=== PATIENT | male | born 1975 | race Caucasian/White ===

== ENCOUNTER 2019-09-03 02:26 | Emergency (ER) | payer SELFPAY | END 2019-09-03 02:40 | disposition home or self-care (01) | PROVIDERS: Emergency Provider Emergency Medicine; Visit Provider Emergency Medicine | DX: M62.838 Other muscle spasm (principal); M25.512 Pain in left shoulder | CPT/HCPCS: 99283 ==

== ENCOUNTER 2019-09-14 10:44 | Emergency (ER) | payer SELFPAY ==
[2019-09-14 10:55] VITALS: BP 132/82; PULSE 74; RESP 16; TEMP 36.6; O2SAT 98; BMI 24.3
--- NOTE | 2019-09-14 11:09 | ED_ITS ---
Entered by Herminio Pedraza LPN, acting as scribe for HPI - Eye Problem General: Chief complaint: Eye Problems Stated complaint: right eye pain Time Seen by Provider: 09/14/19 11:10 Source: patient Mode of arrival: ambulatory Limitations: no limitations History of Present Illness: HPI Narrative: 43 yo male presents with c/o right eye pain. He reports he pulled a piece of charcoal out of it this am. It became irritated yesterday while at work. Also c/o right wrist pain for about one month. He admits he did get it pinned b/t wood and a conveyor belt. Pain increases with certain movements. No swelling, no bruising. He has still be able to use this wrist. 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) Severity: moderate Treatments Prior to Arrival: other (removed FB) Review of Systems General: Reports: 10 or more systems reviewed and unremarkable except in HPI and below Eyes: Reports: eye discomfort (right) and eye redness (right) Musc: Reports: extremity pain (right wrist, without swelling or bruising, for one month) PFSH ED PFSH: Statuses (acute, chronic, etc) shown below reflect problem list status as previously entered and may not be historically accurate Social History Smoking and tobacco status: current every day smoker Physical Exam Const: COMMON NORMALS: no apparent distress, oriented x3, no limitations, healthy appearing, alert and well nourished GENERAL APPEARANCE: cooperative HENMT: COMMON NORMALS: normocephalic, head/scalp atraumatic and external ears normal HEAD & SCALP: normocephalic and atraumatic EXTERNAL EAR: Yes external ears normal Eye: COMMON NORMALS: PERRL, EOMs intact bilaterally and conjunctivae normal EYELID: eyelid abnormal right upper eyelid erythema and swelling CONJUNCTIVA: Yes conjunctivae normal PUPIL: Yes PERRL Resp: COMMON NORMALS: normal respiratory effort Extremity: RIGHT UPPER EXTREMITY: Yes wrist Right wrist: Yes inspection (no bruising or swelling), Yes palpation (nontender), Yes ROM (normal) and Yes neurovascular exam (intact) Neuro: COMMON NORMALS: oriented x3 SENSORIUM/ORIENTATION: Yes alert Skin: COMMON NORMALS: no rashes or lesions noted GENERAL SKIN EXAM: no rashes or lesions noted Course ED course: xray negative, eye irrigated, pt tolerated well, dc home to follow up with PCP. Vital Signs: Vital signs: Vital Signs Temperature 98 F 09/14/19 10:55 Pulse Rate 74 09/14/19 10:55 Respiratory Rate 16 09/14/19 10:55 Blood Pressure 132/82 09/14/19 10:55 Pulse Oximetry 98 09/14/19 10:55 Discharge Plan Discharge Patient Disposition: Home, Self-Care Clinical Impression: Corneal abrasion Qualifiers: Encounter type: initial encounter Laterality: right Qualified Code(s): S05.01XA - Injury of conjunctiva and corneal abrasion without foreign body, right eye, initial encounter Condition: Stable Prescriptions: New polymyxin B sulf-trimethoprim [Polytrim] 10,000 unit- 1 mg/mL drops 1 drop ophthalmic (eye) QID 7 Days RF: 0 Discharge Orders: Discharge Order (Routine); Ordered 09/14/19 Ordered By: Renu Quinteros Discharge Diet: Usual diet Discharge Activity: Resume usual activity Patient Instructions: Corneal Abrasion (ED) Coding Level of Care Code ED Gas Shovel Operator for Chg Fwd Exam Problem Focused The documentation recorded by the Milo matthew Dani Elizabeth, LPN, accurately reflects the service I personally performed and the decisions made by Neli lugo Amanda, DO
--- NOTE | 2019-09-14 11:16 | XRR_ITS ---
PROCEDURE INFORMATION: Exam: XR Right Wrist Exam date and time: 09/14/2019 11:16 AM Age: 43 years old Clinical indication: Injury or trauma; Injury history: Smashed by log; Late effect from previous injury; RT wrist pain, says he smashed it several months ago; Injury date: X2 months; Injury details: Smashed with a piece of log TECHNIQUE: Imaging protocol: XR Right wrist. Views: 3 or more views. COMPARISON: No relevant prior studies available. FINDINGS: Bones/joints: Normal. Soft tissues: Normal. XR/XR wrist RT min 3V* [id number] IMPRESSION: No acute findings.
--- NOTE | 2019-09-14 11:16 | W.ED.EYEPROB ---
HPI - Eye Problem General: Chief complaint: Eye Problems Stated complaint: right eye pain Time Seen by Provider: 09/14/19 11:10 PFSH ED PFSH: Statuses (acute, chronic, etc) shown below reflect problem list status as previously entered and may not be historically accurate Social History Smoking and tobacco status: current every day smoker Course Vital Signs: Vital signs: Vital Signs Temperature 98 F 09/14/19 10:55 Pulse Rate 74 09/14/19 10:55 Respiratory Rate 16 09/14/19 10:55 Blood Pressure 132/82 09/14/19 10:55 Pulse Oximetry 98 09/14/19 10:55 Discharge Plan Discharge Condition: Stable Coding Level of Care Code ED Reinforced Concrete Inspector for Guadalupe Garcia
--- NOTE | 2019-09-14 11:52 | ED_ITS ---
HPI - Eye Problem General: Chief complaint: Eye Problems Stated complaint: right eye pain Time Seen by Provider: 09/14/19 11:10 Source: patient Mode of arrival: ambulatory Limitations: no limitations History of Present Illness: MD chief complaint: eye pain (right) Location: right eye Eye Symptoms: burning Place: work Severity: moderate Treatments Prior to Arrival: other (removed FB) Review of Systems General: Reports: 10 or more systems reviewed and unremarkable except in HPI and below Eyes: Reports: eye discomfort Musc: Reports: joint pain PFSH ED PFSH: Statuses (acute, chronic, etc) shown below reflect problem list status as previously entered and may not be historically accurate Social History Smoking and tobacco status: current every day smoker Physical Exam Narrative: EXAM NARRATIVE: c o eye pain after pulling a piece of charcoal (from work) from medial [place] of right eye yeaterday, irritation persisting today Course Vital Signs: Vital signs: Vital Signs Temperature 98 F 09/14/19 10:55 Pulse Rate 74 09/14/19 10:55 Respiratory Rate 16 09/14/19 10:55 Blood Pressure 132/82 09/14/19 10:55 Pulse Oximetry 98 09/14/19 10:55 Discharge Plan Discharge Patient Disposition: Home, Self-Care Clinical Impression: Corneal abrasion Qualifiers: Encounter type: initial encounter Laterality: right Qualified Code(s): S05.01XA - Injury of conjunctiva and corneal abrasion without foreign body, right eye, initial encounter Condition: Stable Prescriptions: New polymyxin B sulf-trimethoprim [Polytrim] 10,000 unit- 1 mg/mL drops 1 drop ophthalmic (eye) QID 7 Days RF: 0 Discharge Orders: Discharge Order (Routine); Ordered 09/14/19 Ordered By: Renu Quinteros Discharge Diet: Usual diet Discharge Activity: Resume usual activity Patient Instructions: Corneal Abrasion (ED) Coding Level of Care Code ED Record Librarian for Guadalupe Garcia
[2019-09-14 12:29] VITALS: BP 115/71; PULSE 85; RESP 17; TEMP 36.6; O2SAT 98
[2019-09-14 12:39] VITALS: BP 122/87; PULSE 68; RESP 16; O2SAT 99
== END 2019-09-14 12:40 | disposition home or self-care (01) ==
LOC: ER 12:18
PROVIDERS: Emergency Provider Emergency Medicine
DX: S05.01XA Injury of conjunctiva and corneal abrasion without foreign body, right eye, initial encounter (principal); X58.XXXA Exposure to other specified factors, initial encounter; F17.210 Nicotine dependence, cigarettes, uncomplicated
CPT/HCPCS: 73110; 99281

== ENCOUNTER 2019-11-17 15:25 | Emergency (ER) | payer SELFPAY ==
[2019-11-17 15:30] VITALS: BP 153/90; PULSE 107; RESP 16; O2SAT 99; BMI 24.3
--- NOTE | 2019-11-17 15:40 | W.ED.EXTPRO ---
Documented by User: MARC Etienne 11/17/19 17:07 HPI - Extremity Problem General: Chief complaint: Extremity Problem,Nontraumatic Stated complaint: wrist pain Time Seen by Provider: 11/17/19 17:21 History of Present Illness: HPI Narrative: Patient is a 43-year-old male who comes into the ED with right wrist pain. Patient states that he has had right wrist pain due to an injury about 4 months ago. He said that last night at work he reinjured it by getting his right wrist caught in a machine. He now has more acute pain in his right wrist. He has not taken anything for pain yet. Pain is located on the radial side of wrist. Associated symptoms: Deny chest pain, fever(s) or rash Review of Systems Const: Denies: fever, chills or fatigue Eyes: Denies: change in vision or eye discomfort ENMT: Denies: throat pain, painful swallowing, nasal discharge or nasal congestion Card: Denies: chest pain, palpitations, edema, swelling of feet/ankles, shortness of breath on exertion or shortness of breath when lying down Resp: Denies: shortness of breath, productive cough or non-productive cough GI: Denies: abdominal pain, nausea, vomiting, diarrhea, constipation or blood in stool : Denies: flank pain, difficulty urinating, painful urination or blood in urine Musc: Reports: extremity pain (right wrist) and extremity swelling (right wrist); Denies: neck pain or back pain Skin/Breast: Denies: rash or new lesion Neuro: Denies: headache, numbness in extremities or weakness in extremities PFS ED PFSH: Social History Smoking and tobacco status: current every day smoker Physical Exam Const: COMMON NORMALS: oriented x3 HENMT: COMMON NORMALS: normocephalic HEAD & SCALP: normocephalic MOUTH: oral and palatal mucosa normal THROAT: posterior oropharynx normal and uvula midline Neck/C-Spine: COMMON NORMALS: supple GENERAL: Yes normal visual inspection Resp: COMMON NORMALS: normal respiratory effort, no retractions, no use of accessory muscles and clear to auscultation bilaterally AUSCULTATION: clear to auscultation bilaterally Cardio: COMMON NORMALS: regular rate, regular rhythm, S1 normal heart sound, S2 normal heart sound, no gallops, no clicks, no murmurs and peripheral pulses 2+ throughout RATE: regular rate RHYTHM: regular rhythm HEART SOUNDS: S1 normal and S2 normal PERIPHERAL PULSES: pulses 2+ throughout GI: COMMON NORMALS: normal to inspection, nondistended, normoactive bowel sounds, soft to palpation, non-tender and no masses PALPATION: Yes soft : COMMON NORMALS: Yes no CVA tenderness BLADDER/KIDNEY EXAM: Yes no CVA tenderness Back/Pelvis: COMMON NORMALS: no CVA tenderness Extremity: RIGHT UPPER EXTREMITY: Yes wrist Right wrist: Yes inspection (Mild swelling near radial side of wrist.), Yes palpation (tender on radial side), Yes ROM (normal and no pain with movement) and Yes neurovascular exam (intact) Neuro: COMMON NORMALS: oriented x3 and moves all extremities Skin: COMMON NORMALS: no rashes or lesions noted GENERAL SKIN EXAM: no rashes or lesions noted and dry skin Course Vital Signs: Vital signs: Vital Signs Pulse Rate 107 H 11/17/19 15:30 Respiratory Rate 16 11/17/19 15:30 Blood Pressure 153/90 11/17/19 15:30 Pulse Oximetry 99 11/17/19 15:30 Discharge Plan Discharge Patient Disposition: Home, Self-Care Clinical Impression: Right wrist sprain Qualifiers: Encounter type: initial encounter Qualified Code(s): S63.501A - Unspecified sprain of right wrist, initial encounter Condition: Stable Prescriptions: No Action No Known Home Medications RF: 0 Discharge Diet: Usual diet Discharge Activity: Increase activity as tolerated Patient Instructions: Wrist Injury (ED) Activity Restrictions/Additional Instructions: Take NSAIDs for relief of pain wear wrist brace as directed follow-up with your primary care provider and CV get appointment with Ortho to reevaluate why you have had wrist pain for 4 months. Ice wrist down Coding Level of Care Code ED Care Transition Mgr for Chg Fwd Exam Comprehensive Documented by User: FAMILIA Zayas 11/17/19 17:34 HPI - Extremity Problem General: Chief complaint: Extremity Problem,Nontraumatic Stated complaint: wrist pain Time Seen by Provider: 11/17/19 17:21 PFSH ED PFSH: Social History Smoking and tobacco status: current every day smoker Course Vital Signs: Vital signs: Vital Signs Pulse Rate 107 H 11/17/19 15:30 Respiratory Rate 16 11/17/19 15:30 Blood Pressure 153/90 11/17/19 15:30 Pulse Oximetry 99 11/17/19 15:30 MDM - Extremity (Nontraumatic) MDM Narrative: Medical decision making narrative: Patient complains about wrist pain I received report from MARC Etienne about this patient I went and reassessed patient patient has no swelling to the wrist has full range of motion does have tenderness to the radial side of Woo and explained x-rays negative Discharge Plan Discharge Patient Disposition: Home, Self-Care Clinical Impression: Right wrist sprain Qualifiers: Encounter type: initial encounter Qualified Code(s): S63.501A - Unspecified sprain of right wrist, initial encounter Condition: Stable Prescriptions: No Action No Known Home Medications RF: 0 Discharge Diet: Usual diet Discharge Activity: Increase activity as tolerated Patient Instructions: Wrist Injury (ED) Activity Restrictions/Additional Instructions: Take NSAIDs for relief of pain wear wrist brace as directed follow-up with your primary care provider and CV get appointment with Ortho to reevaluate why you have had wrist pain for 4 months. Ice wrist down Coding Level of Care Code ED Care Transition Mgr for Guadalupe Fwd Exam Comprehensive
--- NOTE | 2019-11-17 16:27 | XRR_ITS ---
PROCEDURE INFORMATION: Exam: XR Right Wrist Exam date and time: 11/17/2019 4:49 PM Age: 43 years old Clinical indication: Pain; Wrist; Right; Additional info: Injury and pain TECHNIQUE: Imaging protocol: XR Right wrist. Views: 3 or more views. COMPARISON: No relevant prior studies available. FINDINGS: Bones/joints: Normal. Soft tissues: Normal. XR/XR wrist RT min 3V* [id number] IMPRESSION: No acute findings.
[2019-11-17] MEDS: ketorolac 30 mg/mL INJ IM (16:50)
[2019-11-17 17:50] VITALS: BP 125/85; PULSE 75; RESP 16; O2SAT 97
== END 2019-11-17 17:51 | disposition home or self-care (01) ==
PROVIDERS: Emergency Provider Nurse Practitioner Family
DX: S63.501A Unspecified sprain of right wrist, initial encounter (principal); F17.200 Nicotine dependence, unspecified, uncomplicated; W31.9XXA Contact with unspecified machinery, initial encounter
CPT/HCPCS: 12345; 73110; 96372; 99281; 99283; J1885

== ENCOUNTER 2019-12-05 03:26 | Emergency (ER) | payer SELFPAY ==
[2019-12-05 03:34] VITALS: BP 137/86; PULSE 83; RESP 18; TEMP 36.6; O2SAT 98; BMI 24.3
[2019-12-05 03:42] VITALS: O2SAT 98
--- NOTE | 2019-12-05 03:46 | ED_ITS ---
HPI - Dental/Oral General: Chief complaint: Dental/Oral Stated complaint: DENTAL PAIN Time Seen by Provider: 12/05/19 03:46 History of Present Illness: HPI Narrative: Mr. Baeza is a 43-year-old male comes in complaining of right lower dental pain for the past 1 to 2 days. He denies any facial swelling, fever, vomiting or other complaint. He has no difficulty swallowing or difficulty speaking. Review of Systems General: Reports: 10 or more systems reviewed and unremarkable except in HPI and below PFSH ED PFSH: Medical History (Updated 12/05/19 @ 03:49 by Sona Douglass) No pertinent past medical history Social History Smoking and tobacco status: current every day smoker Physical Exam Const: COMMON NORMALS: no apparent distress, oriented x3, no limitations, healthy appearing and well nourished EXAM LIMITATIONS: no altered mental status GENERAL APPEARANCE: cooperative, well kempt and well developed ORIENTATION/CONSCIOUSNESS: Yes awake HENMT: COMMON NORMALS: normocephalic, head/scalp atraumatic, hearing grossly normal bilaterally, external ears normal, EAC's normal, external nose normal and moist oral mucous membranes HEAD & SCALP: normal to inspection, normocephalic and atraumatic FACE & SINUS: normal facial exam and face symmetric NOSE: external nose normal and nares normal EXTERNAL EAR: Yes external ears normal EXTERNAL AUDITORY CANAL: EAC's normal MOUTH: oral and palatal mucosa normal and tongue normal TEETH & GINGIVA: Yes other (Right inferior most posterior molar with obvious caries. No surrounding swelling or inflammation or abscess.) Eye: COMMON NORMALS: PERRL, EOMs intact bilaterally, conjunctivae normal and no scleral icterus GENERAL EYE: normal appearance of both eyes and normal light reflex CONJUNCTIVA: Yes conjunctivae normal SCLERA: sclerae normal CORNEA: Yes corneas normal PUPIL: Yes PERRL DIRECT OPHTHALMOSCOPY: Yes normal light reflex Neck/C-Spine: COMMON NORMALS: full ROM, no lymphadenopathy, supple, no meningeal signs and no JVD GENERAL: Yes normal visual inspection and Yes trachea midline CERVICAL SPINE: Yes cervical ROM normal Chest: COMMONS NORMALS: inspection of chest normal and palpation of chest normal Resp: COMMON NORMALS: normal respiratory effort, no retractions, no use of accessory muscles and clear to auscultation bilaterally EFFORT & INSPECTION: Yes able to speak in complete sentences AUSCULTATION: clear to auscultation bilaterally Cardio: COMMON NORMALS: no JVD, regular rate, regular rhythm, S1 normal heart sound, S2 normal heart sound, no gallops, no clicks, no murmurs and no rub JUGULAR VENOUS DISTENTION: no JVD RATE: regular rate RHYTHM: regular rhythm HEART SOUNDS: S1 normal and S2 normal GI: COMMON NORMALS: soft to palpation, non-tender, no hepatosplenomegaly and no masses INSPECTION: Yes normal to inspection PALPATION: Yes soft and Yes no hepatosplenomegaly : COMMON NORMALS: Yes no CVA tenderness BLADDER/KIDNEY EXAM: Yes no CVA tenderness Back/Pelvis: COMMON NORMALS: no CVA tenderness, thoracic and lumbar spine normal to inspection, no thoracic nor lumbar tenderness and thoraco-lumbar ROM normal Extremity: COMMON NORMALS: normal to inspection, full ROM, normal capillary refill, no joint enlargement, no clubbing, cyanosis or edema and no calf tenderness Neuro: COMMON NORMALS: oriented x3, CN's II-XII intact bilaterally, moves all extremities, no focal motor deficits and no sensory deficits noted MENINGEAL SIGNS: Yes no meningeal signs Psych: COMMON NORMALS: mental status grossly normal, thought process normal, cooperative, affect normal, speech normal and activity/motor behavior normal APPEARANCE: Yes well kempt SPEECH: Yes normal speech THOUGHT PROCESS: normal thought process Skin: COMMON NORMALS: no rashes or lesions noted, skin turgor normal, no jaundice, no petechiae and no mottling GENERAL SKIN EXAM: no rashes or lesions noted and turgor normal Course Vital Signs: Vital signs: Vital Signs Temperature 97.8 F 12/05/19 03:34 Pulse Rate 83 12/05/19 03:34 Respiratory Rate 18 12/05/19 03:34 Blood Pressure 137/86 12/05/19 03:34 Pulse Oximetry 98 12/05/19 03:42 MDM - Dental/Oral MDM Narrative: Medical decision making narrative: Patient has no sign of [place]'s angina, dental abscess or severe swelling. There is no sign of airway involvement. I will place the patient on Cleocin as appropriate and further care will be determined by the dentist of his choice. He understands he needs to return here if his symptoms change or worsen. Discharge Plan Discharge Patient Disposition: Home, Self-Care Clinical Impression: Toothache Condition: Stable Prescriptions: New Cleocin HCl 150 mg capsule 300 mg PO Q6H 10 Days Qty: 80 RF: 0 Discharge Orders: Discharge Order (Routine); Ordered 12/05/19 Ordered By: Sona Douglass Discharge Diet: Advance as tolerated Discharge Activity: Increase activity as tolerated Patient Instructions: Toothache (ED) Activity Restrictions/Additional Instructions: Please return to the ER immediately for any of the signs or symptoms listed on your discharge instruction sheets, worsening/changing of your symptoms, you are not getting better as quickly as expected, or for ANY other cause or concerns. Be certain to follow-up with your dentist of choice as soon as possible. Coding Level of Care Code ED Metal Furniture Assembly Supervisor for Guadalupe Garcia
[2019-12-05] MEDS: clindamycin 150 mg Capsule 300 MG PO (03:51)
== END 2019-12-05 03:50 | disposition home or self-care (01) ==
PROVIDERS: Emergency Provider Emergency Medicine
DX: K08.89 Other specified disorders of teeth and supporting structures (principal); F17.200 Nicotine dependence, unspecified, uncomplicated
CPT/HCPCS: 12345; 99281; 99282

== ENCOUNTER 2019-12-16 19:54 | Emergency (ER) | payer SELFPAY ==
[2019-12-16 20:06] VITALS: BP 148/98; PULSE 102; RESP 18; TEMP 36.7; O2SAT 97; BMI 22.9
--- NOTE | 2019-12-16 20:22 | XR_ITS ---
WS: [id number] SOFT TISSUE NECK 2 VIEW(S) TECHNIQUE: AP and lateral views of the neck in soft tissue technique are performed. HISTORY: food bolus stuck COMPARISON: None available. No definite soft tissue in the cervical esophagus. There is an area of narrowing in the distal cervic al esophagus on the AP film. On the lateral projection no persistent abnormality. No distention of th e hypopharynx. Epiglottis is normal. XR/XR soft tissue neck [id number] IMPRESSION: No evidence for food bolus in the cervical esophagus.
--- NOTE | 2019-12-16 20:23 | XR_ITS ---
WS: [id number] CHEST 2 VIEWS HISTORY: difficulty breathing COMPARISON: 03/19/2019 Lungs: Clear with no abnormality. No pleural effusion or pneumothorax. Cardiac size: Normal. Mediastinum/Aorta: Normal mediastinum. Bones: Normal. XR/XR chest 2V* [id number] IMPRESSION: Normal chest.
[2019-12-16] MEDS: diphenhydrAMINE 50 mg/mL SDV 1mL IM (20:41)
[2019-12-16 20:45] VITALS: BP 148/98; PULSE 92; RESP 14; O2SAT 98
--- NOTE | 2019-12-16 21:14 | W.ED.ALLEREA ---
HPI - Allergic Reaction General: Chief complaint: Airway/Esophagus Foreign Body Stated complaint: possible foreign body in throat Time Seen by Provider: 12/16/19 20:11 Source: patient Mode of arrival: ambulatory Limitations: no limitations History of Present Illness: HPI narrative: This 43-year-old gentleman presents emergency department with concerns that he thinks he may have got some food stuck in his throat. He was eating some beef jerky and chips and says that he feels something is stuck in his throat. He has not tried to drink anything since it happened. He does say he is having some trouble breathing and throughout my interview with him he kept clearing his throat and coughing. He says he was wheezing earlier. No nausea or vomiting. Onset (ago): hour(s) (1) Exposure: food Associated symptoms: Reports difficulty breathing and difficulty swallowing; Deny hoarseness Severity: moderate Treatment prior to arrival: none Previous Allergic Reaction History: none Review of Systems General: Reports: 10 or more systems reviewed and unremarkable except in HPI and below Const: Denies: fever, chills or body aches Eyes: Denies: change in vision or blurry vision ENMT: Denies: throat pain, enlarged tonsils, painful swallowing, hoarseness, mouth pain or swelling of lips/tongue Card: Reports: chest pain; Denies: palpitations, irregular heart rhythm, edema or swelling of feet/ankles Resp: Reports: shortness of breath, non-productive cough and wheezing GI: Reports: difficulty swallowing : Denies: flank pain, painful urination, urinary frequency, urinary urgency or urinary hesitancy Musc: Denies: neck pain, back pain or extremity swelling Skin/Breast: Denies: rash, itching or redness Neuro: Denies: headache, numbness in extremities or weakness in extremities Endo: Denies: excessive urination, excessive thirst or tired all the time [facility] ED PFSH: Medical History (Updated 12/16/19 @ 21:54 by [place] Hurtado [place] [facility] [place] pertinent past medical history Social History Smoking and tobacco status: current every day smoker Physical Exam Narrative: EXAM NARRATIVE: Appears to be in mild distress and is clearly uncomfortable. Const: COMMON NORMALS: average body habitus, oriented x3, no limitations, healthy appearing, alert and well nourished HENMT: COMMON NORMALS: normocephalic, head/scalp atraumatic and moist oral mucous membranes HEAD & SCALP: normocephalic and atraumatic Eye: COMMON NORMALS: PERRL, EOMs intact bilaterally, conjunctivae normal and no scleral icterus CONJUNCTIVA: Yes conjunctivae normal PUPIL: Yes PERRL Neck/C-Spine: COMMON NORMALS: full ROM, supple, no meningeal signs, no JVD and no carotid bruits Chest: COMMONS NORMALS: inspection of chest normal and palpation of chest normal Resp: COMMON NORMALS: normal respiratory effort, no retractions, no use of accessory muscles, clear to auscultation bilaterally and percussion normal AUSCULTATION: clear to auscultation bilaterally PERCUSSION: percussion normal Cardio: COMMON NORMALS: no JVD, regular rate, regular rhythm, S1 normal heart sound, S2 normal heart sound, no gallops, no clicks, no murmurs, no rub and peripheral pulses 2+ throughout RATE: regular rate RHYTHM: regular rhythm HEART SOUNDS: S1 normal and S2 normal PERIPHERAL PULSES: pulses 2+ throughout GI: COMMON NORMALS: normal to inspection, nondistended, normoactive bowel sounds, soft to palpation, non-tender, no hepatosplenomegaly, no masses and no bruits PALPATION: Yes soft and Yes no hepatosplenomegaly : COMMON NORMALS: Yes no CVA tenderness BLADDER/KIDNEY EXAM: Yes no CVA tenderness Back/Pelvis: COMMON NORMALS: no CVA tenderness Extremity: COMMON NORMALS: normal to inspection, full ROM, normal capillary refill, no calf tenderness and no pedal edema Neuro: COMMON NORMALS: oriented x3 SENSORIUM/ORIENTATION: Yes alert MENINGEAL SIGNS: Yes no meningeal signs Skin: COMMON NORMALS: no rashes or lesions noted, no wounds, skin turgor normal, no jaundice, no petechiae and no mottling GENERAL SKIN EXAM: no rashes or lesions noted and turgor normal Course Reevaluation(s): Reevaluation #1: Patient feels better. He is no longer clearing his throat and coughing. He was able to take a drink of water and went down without difficulty. I believe this is more of an allergic reaction than a food bolus stuck in his throat. He tried a new flavor of jalapeno beef jerky according to his girlfriend. I think he may had an allergic reaction to it. Time: 21:14 Reevaluation #2: Patient continues to improve. No trouble breathing, no clear throat, no sensation of something stuck in his throat. We will discharge him home now. Time: 21:50 Vital Signs: Vital signs: Vital Signs Temperature 98.0 F 12/16/19 20:06 Pulse Rate 70 12/16/19 21:50 Respiratory Rate 16 12/16/19 21:50 Blood Pressure 136/94 12/16/19 21:50 Pulse Oximetry 96 12/16/19 21:50 MDM - Allergic Reaction MDM Narrative: Medical decision making narrative: 43-year-old gentleman who presents to the emergency department with symptoms consistent with an anaphylactic reaction to a jalapeno beef jerky. Symptoms improved following Benadryl and prednisone. He was observed in the emergency department for about an hour after and remained asymptomatic. He is therefore discharged home with a prescription for oral prednisone. Discharge Plan Discharge Patient Disposition: Home, Self-Care Clinical Impression: Anaphylactic reaction due to food Condition: Stable Prescriptions: New prednisone 20 mg tablet 40 mg PO DAILY 3 Days Qty: 6 RF: 0 Discharge Orders: Discharge Order (Routine); Ordered 12/16/19 Ordered By: Gerald Hurtado Discharge Activity: Resume usual activity Patient Instructions: Anaphylaxis (ED) Activity Restrictions/Additional Instructions: Return for any new or worsening symptoms. Follow-up with your primary care provider within 3 days. Avoid the beef jerky to eat today as I believe it caused an anaphylactic reaction. 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
[2019-12-16 21:50] VITALS: BP 136/94; PULSE 70; RESP 16; O2SAT 96
== END 2019-12-16 22:05 | disposition home or self-care (01) ==
PROVIDERS: Emergency Provider Family Medicine
DX: T78.09XA Anaphylactic reaction due to other food products, initial encounter (principal); F17.210 Nicotine dependence, cigarettes, uncomplicated; R06.00 Dyspnea, unspecified
CPT/HCPCS: 12345; 70360; 71046; 96372; 99281; 99283; J1200; J1610; J2930

== ENCOUNTER 2020-01-07 15:01 | Emergency (ER) | payer SELFPAY ==
[2020-01-07 15:16] VITALS: BP 162/95; PULSE 90; RESP 18; TEMP 36.8; O2SAT 97; BMI 23.6
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
[2020-01-07 18:40] VITALS: BP 137/90; PULSE 75; RESP 16; O2SAT 98
== END 2020-01-07 18:40 | disposition home or self-care (01) ==
PROVIDERS: Emergency Provider Physician Assistant
DX: S16.1XXA Strain of muscle, fascia and tendon at neck level, initial encounter (principal); M79.601 Pain in right arm; V89.2XXA Person injured in unspecified motor-vehicle accident, traffic, initial encounter; F17.210 Nicotine dependence, cigarettes, uncomplicated
CPT/HCPCS: 12345; 71046; 72040; 73000; 73030; 73070; 73100; 99281; 99283

== ENCOUNTER 2020-05-06 06:24 | Emergency (ER) | payer SELFPAY ==
[2020-05-06 06:28] VITALS: BP 139/88; PULSE 89; RESP 16; TEMP 36.9; O2SAT 98; BMI 23.6
[2020-05-06 06:34] VITALS: BP 144/94; PULSE 83; RESP 18; O2SAT 98
--- NOTE | 2020-05-06 06:40 | ED_ITS ---
HPI - Extremity Problem General: Chief complaint: Extremity Injury, Lower Stated complaint: right leg pain Time Seen by Provider: 05/06/20 06:40 History of Present Illness: HPI Narrative: 44-year-old male presents to the emergency room with complaint of right leg pain. He cannot recall any specific injury. Patient has pain radiating down the leg involves the entire leg unable to examine adequately abuse patient is unable to relax. He has had problems with back with radicular pain in the past he cannot recall any precipitating episodes that seem to trigger it this time. Denies any difficulty with bowel or bladder control. MD Complaint: extremity pain Onset (ago): day(s) Pain Consistency: intermittent Location: right Quality: burning Radiation: distal Relieving factors: immobilization and rest Exacerbating factors: range of motion, weight bearing and walking Associated symptoms: Reports arthralgias and myalgias; Deny chest pain, fever(s), rash, short of breath or other Review of Systems Const: Denies: fever(s) ENMT: Denies: throat pain, ear or mastoid pain, nasal discharge or nasal congestion Card: Denies: chest pain Resp: Denies: dyspnea, productive cough or non-productive cough GI: Denies: abdominal pain, nausea, vomiting, hematemesis, coffee ground emesis, diarrhea, constipation, bloating, hematochezia or melena : Denies: flank pain, dysuria, urinary frequency or urinary urgency Skin/Breast: Denies: rash PFS ED PFSH: Medical History No pertinent past medical history Social History Smoking and tobacco status: current every day smoker Physical Exam Const: COMMON NORMALS: no acute distress GENERAL APPEARANCE: cooperative and comfortable ORIENTATION/CONSCIOUSNESS: Yes awake, Yes oriented to person, Yes oriented to place and Yes oriented to time HENMT: COMMON NORMALS: normocephalic, atraumatic and hearing grossly normal bilaterally HEAD & SCALP: normocephalic and atraumatic Eye: COMMON NORMALS: Equal, round and reactive pupils present, EOMs intact bilaterally, conjunctivae normal and no scleral icterus CONJUNCTIVA: Yes conjunctivae normal PUPIL: Yes Equal, round and reactive pupils present Neck/C-Spine: COMMON NORMALS: no JVD Resp: COMMON NORMALS: normal respiratory effort, No retractions, No use of ac cessory muscles and clear to auscultation bilaterally AUSCULTATION: clear to auscultation bilaterally Cardio: COMMON NORMALS: no JVD, regular rate, regular rhythm and No murmurs present (Cardio) RATE: regular rate RHYTHM: regular rhythm GI: COMMON NORMALS: Soft to palpation and No hepatosplenomegaly present AUSCULTATION: Yes normoactive bowel sounds PALPATION: Yes Soft to palpation, No Tenderness to palpation present (GI), No Guarding due to palpation present (GI) and Yes No hepatosplenomegaly present Extremity: COMMON NORMALS: normal to inspection, capillary refill normal, no clubbing, cyanosis or edema, no calf tenderness and no pedal edema NARRATIVE EXTREMITY EXAM: Unable to assess patient range of motion muscle strength sore deep tendon reflexes due to pain. Patient unable to relax to allow exam Neuro: SENSORIUM/ORIENTATION: Yes oriented to person, Yes oriented to place and Yes oriented to time Skin: COMMON NORMALS: no rashes or lesions noted GENERAL SKIN EXAM: no rashes or lesions noted Course Vital Signs: Vital signs: Vital Signs Temperature 98.4 F 05/06/20 06:28 Pulse Rate 81 05/06/20 08:06 Respiratory Rate 17 05/06/20 08:06 Blood Pressure 128/90 05/06/20 08:06 Pulse Oximetry 96 05/06/20 08:06 MDM - Extremity (Nontraumatic) MDM Narrative: Medical decision making narrative: Pain is improved some we will discharge her from the ER with meds as below return to his primary care doctor for possible advanced imaging and/or referral to pain clinic or neurosurgery. Discharge Plan Discharge Patient Disposition: Home Clinical Impression: Lumbar radiculopathy, right Condition: Stable Prescriptions: New hydrocodone-acetaminophen 5-325 mg tablet 1 tab PO Q6H PRN (Reason: pain) Qty: 15 RF: 0 Medrol (Maico) 4 mg tablets,dose pack See Rx Instructions .ROUTE .COMPLEX Qty: 21 RF: 0 tizanidine 4 mg capsule 4 mg PO Q6H PRN (Reason: muscle spasticity) Qty: 30 RF: 0 Discharge Orders: Discharge Order (Routine); Ordered 05/06/20 Ordered By: Tony L Horstman Discharge Diet: Usual diet Discharge Activity: Increase activity as tolerated Activity Restrictions/Additional Instructions: Follow-up with your primary care doctor within the week. 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
--- NOTE | 2020-05-06 06:49 | XR_ITS ---
WS: [id number] RIGHT ANKLE: 3 VIEW(S) TECHNIQUE: AP, oblique(s) and lateral. HISTORY: pain COMPARISON: None available. Normal anatomic alignment with no fracture or dislocation. No joint effusion or widening of the ankle mortise. No significant degenerative changes at the joint spaces. No soft tissue abnormality. XR/XR ankle RT min 3V* [id number] IMPRESSION: Normal RIGHT ankle.
--- NOTE | 2020-05-06 06:49 | XR_ITS ---
WS: [id number] RIGHT HIP HISTORY: pain COMPARISON: None available. Right hip: No acute fracture or dislocation. No significant narrowing of the hip joint. No soft tissu e abnormality. XR/XR hip RT 2-3V wo/w pel* [id number] IMPRESSION: 1. No hip fracture. 2. Negative RIGHT hip.
--- NOTE | 2020-05-06 06:49 | XR_ITS ---
WS: [id number] RIGHT KNEE: 3 VIEW(S) TECHNIQUE: AP, oblique(s) and lateral. HISTORY: pain COMPARISON: None available. Very subtle lucency along the RIGHT lateral tibial plateau and metaphysis. Without a history of traum a this is not likely an acute fracture. No joint space narrowing or osteophytes. There is a small suprapatellar effusion and soft tissue edema anteriorly. XR/XR knee RT 3V* [id number] IMPRESSION: 1. Mild joint effusion and soft tissue edema. 2. Subtle cortical lucencies in the lateral tibial plateau and metaphysis. Wit h no history of trauma probably not related to fracture. May be from an old inj ury or normal variation for this patient. If there is tenderness over the later al knee additional evaluation could include a knee CT without contrast.
--- NOTE | 2020-05-06 07:01 | CTR_ITS ---
PROCEDURE INFORMATION: Exam: CT Lumbar Spine Without Contrast Exam date and time: 05/06/2020 7:07 AM Age: 44 years old Clinical indication: Sciatica; Patient HX: Onset of right hip pain with posterior radiation. Unable to bear weight. ; Additional info: Radicular leg pain TECHNIQUE: Imaging protocol: Computed tomography images of the lumbar spine without contrast. Radiation optimization: All CT scans at this facility use at least one of these dose optimization techniques: automated exposure control; mA and/or kV adjustment per patient size (includes targeted exams where dose is matched to clinical indication); or iterative reconstruction. COMPARISON: No relevant prior studies available. RADIATION DOSE METRICS: Total DLP (mGy-cm): 1682.13 FINDINGS: Vertebrae: Marginal osteophytes and mild facet arthropathy. Anatomic alignment with diminished lumbar lordosis. Discs/Spinal canal/Neural foramina: Multilevel disc bulging, including calcified bulging discs at the L4-L5 and L5-S1 levels. Asymmetric right-sided foraminal stenosis at the L4-L5 level in association with right lateral disc herniation. Vasculature: Vascular calcification. Soft tissues: Unremarkable appearance of the paraspinous soft tissues. CT/CT lumbar spine wo con* [id number] IMPRESSION: 1. Multilevel disc bulging, including calcified bulging discs at the L4-L5 and L5-S1 levels. 2. Asymmetric right-sided foraminal stenosis at the L4-L5 level in association with right lateral disc herniation. 3. Additional findings as described above. Radiation Dose CTDIVOL = (mGy): DLP = 1682.13 (mGy-cm)
--- NOTE | 2020-05-06 07:06 | PC.NURSE ---
portable xray at bedside
[2020-05-06] MEDS: dexamethasone 10 mg/mL INJ IM (07:12)
[2020-05-06] MEDS: ketorolac 60 mg/2 mL INJ IM (07:12)
[2020-05-06] MEDS: tizanidine 4 mg Tablet PO (07:14)
--- NOTE | 2020-05-06 07:27 | PC.NURSE ---
pt to ct by stretcher with tech
[2020-05-06 08:06] VITALS: BP 128/90; PULSE 81; RESP 17; O2SAT 96
== END 2020-05-06 08:00 | disposition home or self-care (01) ==
PROVIDERS: Emergency Provider Family Medicine
DX: M54.16 Radiculopathy, lumbar region (principal); F17.210 Nicotine dependence, cigarettes, uncomplicated
CPT/HCPCS: 12345; 72131; 73502; 73562; 73610; 96372; 99281; 99283; J1100; J1885

== ENCOUNTER 2020-08-02 22:16 | Emergency (ER) | payer SELFPAY ==
[2020-08-02 22:40] VITALS: BP 142/92; PULSE 100; RESP 14; TEMP 36.7; O2SAT 98; BMI 23.6
[2020-08-02 22:56] VITALS: BP 151/92; PULSE 103; RESP 18; O2SAT 97
--- NOTE | 2020-08-02 22:57 | XRR_ITS ---
PROCEDURE INFORMATION: Exam: XR Chest, 1 View Exam date and time: 08/02/2020 11:24 PM Age: 44 years old Clinical indication: Cough; Patient HX: Covid symptoms TECHNIQUE: Imaging protocol: XR of the chest Views: 1 view. COMPARISON: CR XR chest 2V* [id number] 01/07/2020 3:50 PM FINDINGS: Lungs: Unremarkable. No consolidation. Pleural space: Unremarkable. No pleural effusion. No pneumothorax. Heart/Mediastinum: Unremarkable. No cardiomegaly. Bones/joints: Unremarkable. XR/XR chest 1V portable [id number] IMPRESSION: No acute findings.
--- NOTE | 2020-08-02 22:58 | ED_ITS ---
HPI - COVID General: Chief Complaint: COVID symptoms Stated Complaint: COVID SYMPTOMS Time Seen by Provider: 08/02/20 22:54 Source: patient Mode of arrival: ambulatory Limitations: no limitations Triage information: Has fever, cough or shortness of breath . Exposure to COVID + person last 14 days History of Present Illness: HPI Narrative: 44-year-old male states that over the last 2 days has had a cough along with fever and body aches. Patient states he has been around multiple people of tested positive over the last week for Covid. He states he has mild dyspnea is in no distress at this time and pulse ox is 97% on room air. Denies any worsening or improving factors. COVID 19 common symptoms: positive fever(s), chills, non-productive cough and body aches; negative headache(s), throat pain, nausea, vomiting or diarrhea COVID 19 other sytmptoms: negative chest pain COVID Results: Nasal/Oral Coronavirus 2019 PCR Pending 08/02/20 23:00 08/02/20 Review of Systems Const: Reports: fever(s), chills and body aches Eyes: Denies: blurry vision or eye discomfort ENMT: Denies: throat pain or dental pain Card: Denies: chest pain Resp: Reports: non-productive cough GI: Denies: abdominal pain, nausea, vomiting or diarrhea : Denies: dysuria Musc: Denies: neck pain or back pain Skin/Breast: Denies: rash Neuro: Denies: headache(s) Psych: Denies: depression Jaime/Lymph: Denies: easy bruising All/Imm: Denies: urticaria PFSH ED PFSH: Medical History (Updated 08/02/20 @ 23:26 by Chantel Odell MD) No pertinent past medical history Social History Smoking and tobacco status: current every day smoker Physical Exam Const: COMMON NORMALS: no acute distress, patient oriented x3 and healthy appearing HENMT: COMMON NORMALS: normocephalic and atraumatic HEAD & SCALP: normocephalic and atraumatic Eye: COMMON NORMALS: Equal, round and reactive pupils present and EOMs intact bilaterally PUPIL: Yes Equal, round and reactive pupils present Neck/C-Spine: COMMON NORMALS: full ROM and supple Chest: COMMONS NORMALS: normal inspection of the chest and normal palpation of entire chest wall Resp: COMMON NORMALS: normal respiratory effort, No retractions, No use of accessory muscles and clear to auscultation bilaterally AUSCULTATION: clear to auscultation bilaterally Cardio: COMMON NORMALS: regular rate, regular rhythm and No murmurs present (Cardio) RATE: regular rate RHYTHM: regular rhythm GI: COMMON NORMALS: Normal to inspection, nondistended, normoactive bowel sounds present, Soft to palpation, non-tender and no masses PALPATION: Yes Soft to palpation Extremity: COMMON NORMALS: normal to inspection and full ROM Neuro: COMMON NORMALS: patient oriented x3, moves all extremities and no focal motor deficits Psych: COMMON NORMALS: mental status grossly normal, Normal thought process present and cooperative THOUGHT PROCESS: Normal thought process present Skin: COMMON NORMALS: no rashes or lesions noted and no wounds GENERAL SKIN EXAM: no rashes or lesions noted Course Vital Signs: Vital signs: Vital Signs Temperature 98.1 F 08/02/20 22:40 Pulse Rate 103 H 08/02/20 22:56 Respiratory Rate 18 08/02/20 22:56 Blood Pressure 151/92 08/02/20 22:56 Pulse Oximetry 97 08/02/20 23:13 MDM - COVID MDM Narrative: Medical decision making narrative: Yvan presents here with symptoms consistent with likely Covid especially with his exposure. He is well- appearing here and does not require any oxygen x-ray is clear. He is self quarantine and will inform him of the results of his test. He is to return if he has any hypoxia or worsening symptoms. He understands and agrees to plan. COVID Results: Nasal/Oral Coronavirus 2019 PCR Pending 08/02/20 23:00 08/02/20 Discharge Plan Discharge Patient Disposition: Home Clinical Impression: Suspected severe acute respiratory syndrome coronavirus 2 (SARS-CoV-2) infection, Suspected 2019-nCoV infection Condition: Stable Prescriptions: No Action hydrocodone-acetaminophen 5-325 mg tablet 1 tab PO Q6H PRN (Reason: pain) Qty: 15 RF: 0 Medrol (Maico) 4 mg tablets,dose pack See Rx Instructions .ROUTE .COMPLEX Qty: 21 RF: 0 tizanidine 4 mg capsule 4 mg PO Q6H PRN (Reason: muscle spasticity) Qty: 30 RF: 0 Discharge Orders: Discharge Order (Routine); Ordered 08/02/20 Ordered By: Chantel Odell Discharge Diet: Advance as tolerated Discharge Activity: Resume usual activity Patient Instructions: Upper Respiratory Infection (ED) Coding Level of Care Code 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
[2020-08-02 23:13] VITALS: O2SAT 97
[2020-08-02 23:36] VITALS: BP 146/96; PULSE 102; RESP 19; O2SAT 98
[2020-08-04 08:43] LABS: Coronavirus Lab Test PTC Negative
--- NOTE | 2020-08-04 16:16 | PC.NURSE ---
Patient notified of COVID results at this time.
== END 2020-08-02 23:36 | disposition home or self-care (01) ==
PROVIDERS: Emergency Provider Emergency Medicine
DX: Z20.828 Contact with and (suspected) exposure to other viral communicable diseases (principal); F17.210 Nicotine dependence, cigarettes, uncomplicated
CPT/HCPCS: 12345; 71045; 87635; 99281; 99283

== ENCOUNTER 2020-09-16 20:41 | Emergency (ER) | payer SELFPAY ==
--- NOTE | 2020-09-16 20:44 | XR_ITS ---
WS: [id number] Left wrist, 3 views, 09/16/2020 Clinical Data: injury Comparison: None. Findings: No fractures or dislocations are seen. The carpal bones are intact. There is no soft tissue swelling. The distal radius and ulna are not remarkable. XR/XR wrist LT min 3V* [id number] Impression: Negative left wrist.
[2020-09-16 20:48] VITALS: BP 149/90; PULSE 93; RESP 16; TEMP 36.9; O2SAT 96; BMI 22.9
[2020-09-16 20:51] VITALS: BP 123/81; PULSE 93; RESP 16; O2SAT 96
--- NOTE | 2020-09-16 21:24 | ED_ITS ---
HPI - Extremity Problem General: Chief complaint: Extremity Injury, Upper Stated complaint: INJURY TO L WRIST Time Seen by Provider: 09/16/20 21:16 History of Present Illness: HPI Narrative: Patient is a 44-year-old male that comes to the ED with left wrist pain. Patient says just prior to arrival he was working on his vehicle and using a wrench. He was a blind pressure on the wrench and it broke causing his left wrist to hit the vehicle. He is complaini ng of having left wrist pain with a little bit of swelling as well. He has been taking ibuprofen to help with pain. Associated symptoms: Deny chest pain, fever(s) or rash Review of Systems Const: Denies: fever(s), chills or fatigue Eyes: Denies: change in vision or eye discomfort ENMT: Denies: throat pain, odynophagia, nasal discharge or nasal congestion Card: Denies: chest pain, palpitations, edema, swelling of feet/ankles, dyspnea on exertion or orthopnea Resp: Denies: dyspnea, productive cough or non-productive cough GI: Denies: abdominal pain, nausea, vomiting, diarrhea, constipation or hematochezia : Denies: flank pain, difficulty urinating, dysuria or hematuria Musc: Reports: extremity pain (left wrist); Denies: neck pain, back pain or extremity swelling Skin/Breast: Denies: rash or new lesions Neuro: Denies: headache(s), numbness in extremities or weakness in extremities [facility] ED PFSH: Medical History No pertinent past medical history Social History Smoking and tobacco status: current every day smoker Physical Exam Const: COMMON NORMALS: no acute distress, patient oriented x3 and alert GENERAL APPEARANCE: cooperative and comfortable HENMT: COMMON NORMALS: normocephalic HEAD & SCALP: normocephalic MOUTH: Normal oral and palatal mucosa present THROAT: posterior oropharynx normal and uvula midline Neck/C-Spine: COMMON NORMALS: supple GENERAL: Yes normal visual inspection Resp: COMMON NORMALS: normal respiratory effort, No retractions, No use of accessory muscles and clear to auscultation bilaterally AUSCULTATION: clear to auscultation bilaterally Cardio: COMMON NORMALS: regular rate, regular rhythm, S1 normal heart sound present, S2 normal heart sound present, No gallops present (Cardio), No clicks present (Cardio), No murmurs present (Cardio) and Peripheral pulses 2+ throughout RATE: regular rate RHYTHM: regular rhythm HEART SOUNDS: S1 normal heart sound present and S2 normal heart sound present PERIPHERAL PULSES: Peripheral pulses 2+ throughout GI: COMMON NORMALS: Normal to inspection, nondistended, normoactive bowel sounds present, Soft to palpation, non-tender and no masses PALPATION: Yes Soft to palpation : COMMON NORMALS: Yes no CVA tenderness BLADDER/KIDNEY EXAM: Yes no CVA tenderness Back/Pelvis: COMMON NORMALS: no CVA tenderness Extremity: GENERAL: Yes normal exam except as noted LEFT UPPER EXTREMITY: Yes wrist Left wrist: Yes inspection (No visible deformity seen. Small contusion seen on radial side of wrist., ), Yes palpation (Mild tenderness on radial aspect of wrist), Yes ROM (Full range of motion) and Yes neurovascular exam (Intact, radial pulse 2+) Neuro: COMMON NORMALS: patient oriented x3 and moves all extremities SENSORIUM/ORIENTATION: Yes alert Skin: GENERAL SKIN EXAM: dry skin Course Vital Signs: Vital signs: Vital Signs Temperature 98.5 F 09/16/20 20:48 Pulse Rate 87 09/16/20 22:09 Respiratory Rate 16 09/16/20 22:09 Blood Pressure 123/87 09/16/20 22:09 Pulse Oximetry 99 09/16/20 22:09 MDM - Extremity (Nontraumatic) MDM Narrative: Medical decision making narrative: Patient is a 44-year-old male comes to the ED with left wrist injury and pain. Exam shows small contusion on radial aspect of left wrist. No deformities and neurovascular tact. Patient has full range of motion. X-ray of left wrist showed no acute fractures or findings. Patient was diagnosed with a contusion of left wrist and told to apply cold pack and rest for the next couple days. Take [id number] ibuprofen for pain. Follow-up with PCP in 7 to 10 days. Return to ED precautions given. Patient understood agree with plan. Imaging Data^: Xray Ortho: Attestation: I personally reviewed and interpreted this imaging study as follows: My impression: Left wrist x-ray?no acute fractures or findings seen. Discharge Plan Discharge Patient Disposition: Home Clinical Impression: Contusion of left wrist Qualifiers: Encounter type: initial encounter Qualified Code(s): S60.212A - Contusion of left wrist, initial encounter Condition: Stable Prescriptions: No Action hydrocodone-acetaminophen 5-325 mg tablet 1 tab PO Q6H PRN (Reason: pain) Qty: 15 RF: 0 Medrol (Maico) 4 mg tablets,dose pack See Rx Instructions .ROUTE .COMPLEX Qty: 21 RF: 0 tizanidine 4 mg capsule 4 mg PO Q6H PRN (Reason: muscle spasticity) Qty: 30 RF: 0 Discharge Orders: Discharge ED (Routine); Ordered 09/16/20 Ordered By: Woo Jeffries Discharge Diet: Regular Discharge Activity: Limit activity as instructed Patient Instructions: Contusion, Wrist Injury (ED) Activity Restrictions/Additional Instructions: Follow-up with medical provider as directed in 7 to 10 days for reevaluation. Wear wrist brace to help with symptoms. Apply ice and rest left wrist for the next couple days. Take [id number] ibuprofen for pain. Take medications as prescribed. Return to the ER or your medical provider if condition worsens. Please read and understand discharge instructions. If any questions, please ask. 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
[2020-09-16 22:09] VITALS: BP 123/87; PULSE 87; RESP 16; O2SAT 99
== END 2020-09-16 22:11 | disposition home or self-care (01) ==
PROVIDERS: Emergency Provider Physician Assistant
DX: S60.212A Contusion of left wrist, initial encounter (principal); F17.210 Nicotine dependence, cigarettes, uncomplicated; W22.09XA Striking against other stationary object, initial encounter
CPT/HCPCS: 12345; 73110; 99281; 99282

== ENCOUNTER 2020-11-27 20:26 | Emergency (ER) | payer SELFPAY ==
[2020-11-27 21:05] VITALS: BP 133/84; PULSE 99; RESP 16; TEMP 36.6; O2SAT 95; BMI 23.6
[2020-11-27 23:38] VITALS: RESP 18; O2SAT 98
[2020-11-27] MEDS: oxyCODONE-APAP 5-325 mg Tablet 2 TAB PO (23:38)
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
== END 2020-11-27 23:39 | disposition home or self-care (01) ==
PROVIDERS: Emergency Provider Emergency Medicine
DX: M54.12 Radiculopathy, cervical region (principal); F17.210 Nicotine dependence, cigarettes, uncomplicated
CPT/HCPCS: 99283

== ENCOUNTER 2020-12-06 08:59 | Emergency (ER) | payer SELFPAY ==
[2020-12-06 09:10] VITALS: BP 170/116; PULSE 86; RESP 18; O2SAT 99
[2020-12-06 09:24] VITALS: BP 170/116; PULSE 92; RESP 18; O2SAT 99
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
--- NOTE | 2020-12-06 09:26 | XRR_ITS ---
PROCEDURE INFORMATION: Exam: XR Cervical Spine Exam date and time: 12/06/2020 9:27 AM Age: 44 years old Clinical indication: Neck pain; Additional info: Cervical radiculopathy symptoms, left TECHNIQUE: Imaging protocol: XR of the cervical spine. Views: 2 or 3 views. COMPARISON: CR XR cervical spine 3V* [id number] 01/07/2020 3:50 PM FINDINGS: Bones/joints: Diminished cervical lordosis and multilevel degenerative change. Anatomic alignment. Partial obscuration of the odontoid. Soft tissues: Unremarkable. XR/XR cervical spine 3V* [id number] IMPRESSION: Diminished cervical lordosis and multilevel degenerative change.
[2020-12-06] MEDS: acetaminophen 500 mg Tablet 1000 MG PO (09:30)
[2020-12-06 11:15] VITALS: BP 148/103; PULSE 60; RESP 14; O2SAT 97
--- NOTE | 2020-12-08 11:13 | DCPLANNER ---
regional hr manager had message to schedule an outpatient MRI for patient. regional hr manager faxed signed order to centralized scheduling, will call for appointment information. After the MRI is scheduled, manager case will schedule a follow up appointment for patient with ortho.
== END 2020-12-06 11:17 | disposition home or self-care (01) ==
PROVIDERS: Emergency Provider Nurse Practitioner Family
DX: M67.912 Unspecified disorder of synovium and tendon, left shoulder (principal); M25.512 Pain in left shoulder; F17.210 Nicotine dependence, cigarettes, uncomplicated
CPT/HCPCS: 72040; 73030; 99283

== ENCOUNTER 2021-02-08 02:39 | Emergency (ER) | payer SELFPAY ==
[2021-02-08 03:18] VITALS: BP 150/98; PULSE 101; RESP 16; TEMP 36.9; O2SAT 96; BMI 23.3
[2021-02-08 03:21] VITALS: PULSE 97; RESP 18; O2SAT 97
[2021-02-08] MEDS: oxyCODONE-APAP 5-325 mg Tablet 1 TAB PO (04:14)
[2021-02-08] MEDS: cephALEXin 500 mg Capsule PO (04:14)
[2021-02-08 04:16] VITALS: PULSE 60; RESP 17; O2SAT 99
--- NOTE | 2021-02-08 04:48 | ED_ITS ---
HPI - Dental/Oral General: Chief complaint: Dental/Oral Stated complaint: possible abcess tooth Time Seen by Provider: 02/08/21 03:33 History of Present Illness: HPI Narrative: 45-year-old male presents with right lower jaw pain and swelling. He has had a for about a week. Fever. Some drainage on and off. MD Complaint: tooth pain Location: Tooth # (29) Onset (ago): day(s) Duration: constant Severity: moderate Relieving factors: NSAIDs Exacerbating factors: nothing Context: history of dental caries and poor dental care Associated symptoms: Denies fever(s), sore throat or tongue swelling Review of Systems Const: Denies: fever(s) or chills ENMT: Reports: swelling of lips/tongue, oral sores and dental pain; Denies: throat pain Card: Denies: chest pain Resp: Denies: dyspnea or productive cough GI: Denies: abdominal pain or hematemesis Neuro: Denies: numbness in extremities All/Imm: Denies: tongue swelling PFSH ED PFSH: Medical History (Updated 02/08/21 @ 03:50 by Noel Salinas DO) No pertinent past medical history Social History Smoking and tobacco status: current every day smoker Physical Exam Const: COMMON NORMALS: no acute distress, patient oriented x3 and alert HENMT: TEETH & GINGIVA: Yes abnormal tooth and associated gingiva and Yes gingiva abnormal THROAT: uvula laterally displaced Chest: COMMONS NORMALS: normal inspection of the chest Resp: COMMON NORMALS: normal respiratory effort and No use of accessory muscles Cardio: COMMON NORMALS: regular rate and regular rhythm RATE: regular rate RHYTHM: regular rhythm Neuro: COMMON NORMALS: patient oriented x3 SENSORIUM/ORIENTATION: Yes alert Course Vital Signs: Vital signs: Vital Signs Temperature 98.4 F 02/08/21 03:18 Pulse Rate 60 02/08/21 04:16 Respiratory Rate 17 02/08/21 04:16 Blood Pressure 150/98 02/08/21 03:18 Pulse Oximetry 99 02/08/21 04:16 Discharge Plan Discharge Patient Disposition: Home Clinical Impression: Gingival abscess Condition: Stable Prescriptions: New cephalexin 500 mg capsule 500 mg PO Q6H 10 Days Qty: 40 RF: 0 ketorolac 10 mg tablet 10 mg PO TID PRN (Reason: pain) Qty: 10 RF: 0 Discontinued naproxen 500 mg tablet 500 mg PO BID PRN (Reason: pain) Qty: 30 RF: 0 No Action Medrol (Maico) 4 mg tablets,dose pack See Rx Instructions .ROUTE .COMPLEX Qty: 21 RF: 0 tizanidine 4 mg capsule 4 mg PO Q6H PRN (Reason: muscle spasticity) Qty: 20 RF: 0 Pepcid 20 mg tablet 20 mg PO BID Qty: 20 RF: 0 Discharge Orders: Discharge ED (Routine); Ordered 02/08/21 Ordered By: Noel Salinas Discharge Diet: Advance as tolerated Discharge Activity: Resume usual activity Patient Instructions: Dental Abscess (ED) Coding Level of Care Code ED Real Estate Loan Officer for Guadalupe Garcia
== END 2021-02-08 04:17 | disposition home or self-care (01) ==
PROVIDERS: Emergency Provider Emergency Medicine
DX: K05.319 Chronic periodontitis, localized, unspecified severity (principal); F17.210 Nicotine dependence, cigarettes, uncomplicated
CPT/HCPCS: 99283